=== PATIENT | male | born 1950 | race Two or more races ===

== ENCOUNTER 2024-06-23 21:12 | Emergency (ER) | payer MEDICARE ==
[~2024-06-23] VITALS: Ht 180.3 cm; Wt 127.0 kg
[2024-06-23 21:12] VITALS: BP 0/0; PULSE 0; RESP 0; O2SAT 64
--- NOTE | 2024-06-23 21:24 | ED.PDOC ---
CPR-HPI HPI Comments 74 y/o M, with a known limited history of asthma, CHF, DM and morbid obesity, is BIBA from home for cardiac arrest, today. Per EMS report, staff received a call from patient's spouse at 2017, this evening, after witnessing her become unresponsive at rest, suddenly, without any prior complaints. EMS staff notes on arriving on scene at 2030 and finding patient unchanged from initial reported state in PEA and a blood glucose of 236 before initiating CPR. on scene reported to EMS staff then on not performing any CPR on the patient, due to her being physically disabled. En route, patient had continuous CPR performed and was given 6x epinephrine and 2x Narcan doses along with 300ml NS s/p I/O maría cement to right tibia. Upon arrival to ED at 2111, patient was commented by EMS to have had his pulse re-evaluated 6x, with the four initial pulse readings showing PEA and last two showing asystole, and a total estimated downtime of 54x minutes. Care was resumed by ED staff. 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 Time Seen by MD: 21:12 Reviewed Notes: Nurses Notes, Sheriffs Officer Notes, Medications, Allergies Allergies: Coded Allergies: Alprazolam (Verified Allergy, Unknown, 06/23/24) Penicillins (Verified Allergy, Unknown, 06/23/24) Information Source: Emergency Med Personnel Mode of Arrival: EMS Timing: Minutes Duration: Down time prior EMS: (13 minutes ), Total time prior hopital: (54x minutes ) Onset: At rest, Witnessed Available Hx: Prior Cardiac Disease Inital rhythm: PEA Treatment: CPR, IV (300ml NS via right tibia I/O access port ), Epinephrine (6x), Other (2x Narcan ) Associated signs and symptoms: None Past Medical History PAST MEDICAL HISTORY: Asthma, CHF, DM Past Medical History (Other): obesity Surgical History: Unknown, Unobtainable Family History Family History: Unknown, Unobtainable Social History Smoker: Unknown, Unobtainable Alcohol: Unknown, Unobtainable Drugs: Unknown, Unobtainable Lives In: Home Cardiovascular: reports: others (cardiac arrest ) All Other Systems: Reviewed and Negative (negative unless otherwise stateda above or in HPI) Physical Exam Exam Comments Absent pulse with asystole in 3 pulse checks General Appearance: Obese HEENT: NOT DONE (CPR in progress) Neck: NOT DONE (CPR in progress) Respiratory: NOT DONE (CPR in progress) Cardiovascular: Other (asystole ) Breast Exam: Deferred (CPR in progress) Gastrointestinal: NOT DONE (CPR in progress) Genitalia: Deferred (CPR in progress) Pelvic: Deferred (CPR in progress) Rectal: Deferred (CPR in progress) Extremities: NOT DONE (CPR in progress) Neurologic: NOT DONE (CPR in progress) Cerebellar Function: NOT DONE (CPR in progress) Reflexes: NOT DONE (CPR in progress) Skin: Mottled Lymphatic: NOT DONE (CPR in progress) Was a procedure done? Was a procedure done?: Yes Sedation Sedation?: No Informed consent obtained: No Intubation Indication: Respiratory Insufficiency, Altered Mental Status, Airway Protection Prep: Preoxygenation Pretreated with: Nothing Medicated with: Nothing Intubation Approach: Orotracheal Intubation size: cm (8) Informed consent obtained: No Risks/benefits/alt described: No Differential Dx CPR Differential Diagnosis: Cardiopulmonary arrest, Heart Block, Myocardial Infarction, Pulmonary Embolus, Ruptured Aortic Aneurysm X-Ray, Labs, Meds, VS Vital Signs Date Time Temp Pulse Resp B/P (MAP) Pulse Ox O2 Delivery O2 Flow Rate FiO2 06/23/24 21:12 96.3 0 0 0/0 (0) 64 Time of 1ST Reevaluation: 21:21 (2120 is time of ) Reevaluation 1ST: Cardiac arrest Patient Education/Counseling: Pt Unresponsive Family Education/Counseling: No Family Present (at time of initial assessment) Comments 2120 is time of Departure 1 Departure Time of Disposition: 21:21 Impression: Primary Impression: Cardiac arrest Disposition: 20 Condition: Other () Additional Instructions: Informed of patients condition, time of 2120hs Critical Care Note Critical Care Time?: No Heart Score Heart Score: Heart Score Response (Comments) Value History N/A 0 EKG N/A 0 Age N/A 0 Risk Factors N/A 0 Troponin N/A 0 Total 0 Stability Stability form required: No I personally scribed for MANOJ STILES ([email or web address]) on 06/23/24 at 21:24. Electronically submitted by Azeem Bear ([email or web address]). I personally scribed for MANOJ STILES ([email or web address]) on 06/23/24 at 21:40. Electronically submitted by Azeem Bear ([email or web address]). MANOJ STILES RESIDENT Jun 23, 2024 21:24
--- NOTE | 2024-06-24 04:46 | RESUS ---
CODE BLUE ASSESSSMENT History of Events History of Events: 74 y/o M, with a known limited history of asthma, CHF, DM and morbid obesity, is BIBA from home for cardiac arrest, today. Per EMS report, staff received a call from patient's spouse at 2017, this evening, after witnessing her become unresponsive at rest, suddenly, without any prior complaints. EMS staff notes on arriving on scene at 2030 and finding patient unchanged from initial reported state in PEA and a blood glucose of 236 before initiating CPR. on scene reported to EMS staff then on not performing any CPR on the patient, due to her being physically disabled. En route, patient had continuous CPR performed and was given 6x epinephrine and 2x Narcan doses along with 300ml NS s/p I/O placement to right tibia. Upon arrival to ED at 2111, patient was commented by EMS to have had his pulse re-evaluated 6x, with the four initial pulse readings showing PEA and last two showing asystole, and a total estimated downtime of 54x minutes. Care was resumed by ED staff. Initial Information Date: Jun 23, 2024 Time: 20:18 Location of Arrest: In Field Arrest Witnessed: Yes CPR started initial time: 20:31 CPR started by whom: EMS Last seen well: PRIOR TO ARREST Pre-Hospital Care: ACLS Type of arrest: Cardiac, Respiratory, Adult, Witnessed Spontaneous Respirations: No Pulse Present: No Monitoring: ECG, Pulse Oximetry, Apnea, Telemetry Airway Ventilation Breathing at Onset: Apneic O2 Sat by Pulse Oximetry: 0 Oxygen Delivery Method: Ambu-Bag Time of first Assisted Ventila: 21:14 Artificial Ventilation: Bag/Endo tube Intubation Time: 21:14 Intubation Size: 8.0 cuffed Intubated by: EUFEMIA RT Intubation Attempts: 1 Intubated orally: Yes Intubated Nasaly: No Tube secured at: 24 Cricoid pressure done: No CO2 indicator used: Yes Confirmation: Auscultation, Exhaled CO2 Suctioning (Oral/Tracheal): No Circulation Circulation : Time: 21:12 Pulse Rate (adult): 0 Blood Pressure Systolic: 0 Blood Pressure Diastolic: 0 Temperature (Fahrenheit): 98.4 Procedure - IV Procedure - IV : IV start time: 21:15 IV Side: Right IV Location: Antecubital IV Placed: In Hospital IV Gauge: 20 IV Line Care: Saline Flush Procedure - Intraosseous Site of Intraosseous: Tibia mila-medial Intraosseous inserted by: PLACED BY EMS IN FIELD Medications & Response Medications and Responses #1: Medication Time: 21:14 ADULT Medications Given ADULT: Epinephrine 1 mg, Sodium Bacarbinate 50 meq, Calcium Chloride 10 mL Route of Administration: IO Heart Rate: 0 EKG Rhythm: Asystole Blood Pressure Systolic: 0 Blood Pressure Diastolic: 0 Respiratory Rate: 0 O2 Sat by Pulse Oximetry: 0 EKG Rhythm: Asystole Comment ASYSTOLE 2114, AND 2116 Medications and Responses #2: Medication Time: 21:17 ADULT Medications Given ADULT: Epinephrine 1 mg, Magnesium Sulfate 2 gm Route of Administration: IV Heart Rate: 0 Blood Pressure Systolic: 0 Blood Pressure Diastolic: 0 O2 Sat by Pulse Oximetry: 0 EKG Rhythm: Asystole Comment ASYSTOLE AT 2118 Medications and Responses #3: Medication Time: 21:20 ADULT Medications Given ADULT: Epinephrine 1 mg, Sodium Bacarbinate 50 meq Route of Administration: IV Heart Rate: 0 EKG Rhythm: Asystole Blood Pressure Systolic: 0 Blood Pressure Diastolic: 0 Respiratory Rate: 0 O2 Sat by Pulse Oximetry: 0 EKG Rhythm: Asystole Comment ASYSTOLE 2121 TOD Pacing Pacer Pads Applied and Pacing: Yes Nurses Notes Carla Coma Scale Eye Opening: None (1) Carla Coma Scale Verbal: None (1) [place] Coma Scale Motor: None (1) [place]ow Total: 3 Pupil Reaction: Non Reactive Bedside Blood Glucose: 121 EKG Rhythm: Asystole Time Code Ended Time Code Ended: 21:22 Post Arrest Status: Outcome of code: Unsuccessful Patient pronounced by: DR FREEMAN Time patient pronounced: 21:22 Family notified: Yes Attending called: Yes Code Team Present: DR FREEMAN, HARPAL GERARD RN HS, KARY CONTINUOUS WAVE OPERATOR, PURNIMA PRIMARY, SHABNAM RUTHERFORD RN, CATHERINE ERT, EL ERT, EUFEMIA RT, EL RT, BAN RT. Post Resuscitation Neurologica Pupil Size: 4 HARPAL NEGRON Jun 24, 2024 04:46
== END 2024-06-23 21:22 ==
LOC: ER 21:12 → EDSEX 21:12 → EDBD 21:12 → ER 21:22
DX: I46.9 Cardiac arrest, cause unspecified (principal); J45.909 Unspecified asthma, uncomplicated; Z88.0 Allergy status to penicillin; Z88.6 Allergy status to analgesic agent
CPT/HCPCS: 31500; 92950